=== PATIENT | male | born 1960 | race Caucasian/White ===

== ENCOUNTER 2024-08-25 10:06 | Day surgery (SDC) | payer MEDICARE, BC ==
[~2024-08-25] VITALS: Ht 193 cm; Wt 112.7 kg
[~2024-08-25 10:06] MED LIST: Atropine Sulfate 0.1 MG/ML 10ML SYR ONE; Glycopyrrolate 0.2 MG/ML 1MLVIAL ONE; Lactated Ringer's 1,000 ML IV ONE; Lidocaine 2% 5 ML SDV ONE; Lidocaine HCl/Pf 1% 5 ML VIAL ONE; Methylene Blue 1% 100 MG/10 ML VIAL ONE; Ondansetron HCl 2 MG / ML 2ML Vial ONE; ePHEDrine Sulfate 50 MG/ML 1ML Injection ONE; propofoL 40 ML IV ONE
[2024-08-25] MEDS ORDERED: DILT180 (10:42)
[2024-08-25] MEDS ORDERED: ELIQUIS5 M4 (10:42)
[2024-08-25] MEDS ORDERED: Tambocor100 MG (10:42)
[2024-08-25] MEDS ORDERED: ATOR20 (10:43)
[2024-08-25] MEDS ORDERED: TELM40 (10:43)
[2024-08-25] MEDS ORDERED: Hair, Skin & N1 EACH (10:43)
[2024-08-25] MEDS ORDERED: OMEP20ER PO (10:45)
[2024-08-25] MEDS ORDERED: Lactated Ringer's 1,000 ML IV ONE (11:46)
--- NOTE | 2024-08-25 12:01 | NUR ---
08/25/24 1201 Hilda Hong PT UPDATED ON DELAY IN START TIME DUE TO PRIOR CASE RUNNING LONGER THAN EXPECTED. BED IN LOW, LOCKED POSITION, CALL LIGHT IN REACH. WARM BLANKET PUT ON PT AND FAMILY AT BEDSIDE.
[2024-08-25] MEDS ORDERED: propofoL 20 ML IV ONE (12:49)
[2024-08-25 13:31] VITALS: BP 101/65
== END 2024-08-25 13:25 | disposition home or self-care (01) ==
LOC: ORSCSDS 10:06
PROVIDERS: Internal Medicine Gastroenterology
PROC: 0DB98ZX Excision of Duodenum, Via Natural or Artificial Opening Endoscopic, Diagnostic (ICD-10-PCS; principal; 2024-08-25 11:30)
PROC: 0DB58ZX Excision of Esophagus, Via Natural or Artificial Opening Endoscopic, Diagnostic (ICD-10-PCS; principal; 2024-08-25 11:30)
PROC: 0DB68ZX Excision of Stomach, Via Natural or Artificial Opening Endoscopic, Diagnostic (ICD-10-PCS; principal; 2024-08-25 11:30)
DX: R10.13 Epigastric pain (principal); K21.00 Gastro-esophageal reflux disease with esophagitis, without bleeding; K29.70 Gastritis, unspecified, without bleeding; K31.7 Polyp of stomach and duodenum; I10 Essential (primary) hypertension; I48.0 Paroxysmal atrial fibrillation; Z79.899 Other long term (current) drug therapy
CPT/HCPCS: 88305; 88342; J0461; J2003; J2405; J2704; J7120; Q9968

== ENCOUNTER → 2025-10-04 | Outpatient (CLI) | payer MEDICARE, BC ==
[~2025-10-04] MED LIST changes: +ATOR20; -Atropine Sulfate 0.1 MG/ML 10ML SYR ONE; +DILT180; +ELIQUIS5 M4; -Glycopyrrolate 0.2 MG/ML 1MLVIAL ONE; +Hair, Skin & N1 EACH; -Lactated Ringer's 1,000 ML IV ONE; -Lidocaine 2% 5 ML SDV ONE; -Lidocaine HCl/Pf 1% 5 ML VIAL ONE; -Methylene Blue 1% 100 MG/10 ML VIAL ONE; +OMEP20ER PO; -Ondansetron HCl 2 MG / ML 2ML Vial ONE; +TELM40; +Tambocor100 MG; -ePHEDrine Sulfate 50 MG/ML 1ML Injection ONE; -propofoL 40 ML IV ONE
== END ==
LOC: LAB SHORT 10:45 → LAB 10:45
DX: N45.1 Epididymitis (principal); N50.819 Testicular pain, unspecified
CPT/HCPCS: 87086